=== PATIENT | female | born 1955 | race Caucasian/White ===

== ENCOUNTER 2018-09-29 07:04 | Day surgery (SDC) | payer BC ==
[2018-09-29] MEDS ORDERED: LIDOCAINE 2% MDV (20MG/ML) 20ML VIAL IV ONE (07:05)
[2018-09-29] MEDS ORDERED: DEXAMETHASONE 4 MG/ML 1ML VIAL IVP ONE (07:05)
[2018-09-29] MEDS ORDERED: PROPOFOL 10 MG/ML VIAL IV ONE (07:05)
--- NOTE | 2018-09-29 14:40 | Operative Note ---
DATE OF SURGERY: 09/29/2018 Surgeon: Óscar Enriquez DO PREOPERATIVE DIAGNOSIS: Screening colonoscopy. POSTOPERATIVE DIAGNOSIS: Screening colonoscopy. OPERATION: Colonoscopy with polypectomy. PROCEDURE: The patient is a 63-year-old female who was taken to the endoscopy suite, placed in a supine position. Peripheral monitoring was placed including nasal O2, pulse ox, and blood pressure cuff. The patient was rotated into a left lateral position. Propofol anesthesia was titrated to effect. At this time, a digital rectal exam was done which revealed no internal masses. At this time, a well-lubricated [id number] colonoscope was inserted into the patient's rectum and advanced up to the sigmoid, over the transverse, down the ascending colon to the cecum. Once the cecum was reached, it was identified by the appendiceal orifice and ileocecal valve. There was some scattered right-sided diverticulosis noted. The scope was then slowly withdrawal inspecting all mucosal surface areas. There were normal folds and distensibility seen. There was a polypoid lesion in the upper rectum which was removed with cold snare jumbo forceps. Complete retrieval and hemostasis noted. Retroflexion was done which revealed grade 1 hemorrhoids. At this time, the scope was straightened and fully removed. FINDINGS AT THE TIME OF SURGERY: 1. Right-sided diverticulosis. 2. Rectal polyp. 3. Grade 1 hemorrhoids. RECOMMENDATIONS: 1. High-fiber diet. 2. Repeat this in 5 years or sooner if any problems arise. CC: MD MURTAZA Goode
== END 2018-09-29 09:08 | disposition home or self-care (01) ==
LOC: HOP 07:04
PROVIDERS: ATTEND Surgery
DX: K62.1 Rectal polyp (principal); K57.90 Diverticulosis of intestine, part unspecified, without perforation or abscess without bleeding